=== PATIENT | male | born 1960 | race Caucasian/White ===

== ENCOUNTER 2020-10-04 14:10 | Emergency (ER) | payer OTHER ==
[~2020-10-04 14:10] MED LIST: ALLERGY RELIEF180 MG PO; AVODART0.5 MG PO; FISH OIL 1,2001 EACH PO; FLAGYL500 MG PO; GEMFIBROZIL600 MG PO; GLYBURIDE-METF1 EACH PO; LISINOPRIL20 MG PO; MELOXICAM15 MG PO; PANTOPRAZOLE SO40 MG PO; ST. JOSEPH ASPI81 M1 PO
== END 2020-10-04 19:00 | disposition home or self-care (01) ==
LOC: ER1 14:10
DX: U07.1 COVID-19 (principal); E11.9 Type 2 diabetes mellitus without complications; Z90.49 Acquired absence of other specified parts of digestive tract; Z88.0 Allergy status to penicillin
CPT/HCPCS: 71045; 99283; M0239

== ENCOUNTER 2021-01-01 17:06 | Emergency (ER) | payer OTHER ==
[2021-01-01 18:08] LABS: HEMOGLOBIN 15.3 gm/dl (14.0-17.5); RED BLOOD COUNT 5.43 M/UL (4.20-5.50); WHITE BLOOD COUNT 9.8 K/UL (4.5-11.0)
[2021-01-01 18:29] LABS: BUN/CREATININE RATIO 15 (0-10)
== END 2021-01-01 23:44 | disposition home or self-care (01) ==
LOC: ER1 17:06
PROVIDERS: Physician Assistant
DX: I48.91 Unspecified atrial fibrillation (principal); E78.5 Hyperlipidemia, unspecified; I10 Essential (primary) hypertension; Z90.49 Acquired absence of other specified parts of digestive tract; Z88.0 Allergy status to penicillin
CPT/HCPCS: 80053; 82550; 82553; 83874; 84484; 85025; 93005; 99285